=== PATIENT | male | born 1990 | race Two or more races ===

== ENCOUNTER 2024-08-18 19:06 | Emergency (ER) | payer MEDICAID, OTHER ==
[~2024-08-18] VITALS: Ht 182.9 cm; Wt 143.8 kg
[2024-08-19 02:01] VITALS: BP 148/100; PULSE 62; RESP 16; TEMP 98.2; O2SAT 100
== END 2024-08-19 02:08 | disposition home or self-care (01) ==
LOC: ER 19:06
DX: S29.011A Strain of muscle and tendon of front wall of thorax, initial encounter (principal); M54.50 Low back pain, unspecified; Z88.6 Allergy status to analgesic agent; V43.52XA Car driver injured in collision with other type car in traffic accident, initial encounter; W22.10XA Striking against or struck by unspecified automobile airbag, initial encounter; Y93.89 Activity, other specified; Y92.89 Other specified places as the place of occurrence of the external cause; Y99.8 Other external cause status
CPT/HCPCS: 70450; 71046; 72100; 72128; 72131; 72170